=== PATIENT | male | born 1950 | race Caucasian/White ===

== ENCOUNTER 2017-10-20 10:02 | Emergency (ER) | payer BC, MEDICARE ==
[2017-10-20 12:02] VITALS: BP 126/67
--- NOTE | 2017-10-20 12:11 | UC ---
UC General HPI - HPI Summary HPI Summary: pt is c/o a cough with congestion and sore throat. this is day 4. no fever, cp or sob. pt is an diabetic but BS stable at 130's. - History of Current Complaint Chief Complaint: UCRespiratory Stated Complaint: COUGH, SORE THROAT Time Seen by Provider: 10/20/17 11:55 Hx Obtained From: Patient Onset/Duration: Gradual Onset Timing: Constant Onset Severity: Mild Current Severity: Mild Pain Intensity: 0 Aggravating: nothing Alleviating: nothing Associated Signs & Symptoms: Positive: Cough. Negative: Chest Pain, Fever, Headache, SOB, Wheezing - Allergy/Home Medications Allergies/Adverse Reactions: Allergies Allergy/AdvReac Type Severity Reaction Status Date / Time No Known Allergies Allergy Verified 10/20/17 11:53 Home Medications: Home Medications Atorvastatin* [Lipitor 40 MG*] 40 mg DAILY 10/20/17 [History Confirmed 10/20/17] Levothyroxine TAB* [Synthroid TAB*] 50 mcg DAILY 10/20/17 [History Confirmed 12/04] metFORMIN* [Glucophage 500 MG TAB *] 500 mg PO BID 10/20/17 [History Confirmed 10/20/17] PMH/Surg Hx/FS Hx/Imm Hx Endocrine History: Diabetes, Thyroid Disease, Dyslipidemia Cardiovascular History: Hypertension - Surgical History Surgical History: Yes Surgery Procedure, Year, and Place: lipoma removed - Social History Occupation: Employed Full-time Lives: With Family Alcohol Use: None Substance Use Type: None Smoking Status (MU): Former Smoker Type: Cigarettes Have You Smoked in the Last Year: No Household Exposure Type: Cigarettes - Immunization History Vaccination Up to Date: Yes Review of Systems Constitutional: Negative Skin: Negative Eyes: Negative ENT: Sore Throat Respiratory: Cough Cardiovascular: Negative Gastrointestinal: Negative Genitourinary: Negative Motor: Negative Neurovascular: Negative Musculoskeletal: Negative Neurological: Negative Psychological: Negative Is Patient Immunocompromised?: No All Other Systems Reviewed And Are Negative: Yes Physical Exam Triage Information Reviewed: Yes Appearance: Well-Appearing Vital Signs: Initial Vital Signs Temp 98.9 F 10/20/17 11:56 Pulse 86 10/20/17 11:56 Resp 16 10/20/17 11:56 BP 126/67 10/20/17 11:56 Pulse Ox 99 10/20/17 11:56 Vital Signs Reviewed: Yes Eyes: Positive: Conjunctiva Clear ENT: Positive: Pharyngeal erythema, TMs normal, Uvula midline. Negative: Nasal congestion, Nasal drainage, Tonsillar swelling, Tonsillar exudate, Trismus, Muffled voice, Hoarse voice Neck: Positive: Supple, Nontender, No Lymphadenopathy Respiratory: Positive: Lungs clear, Normal breath sounds Cardiovascular: Positive: RRR, No Murmur, Pulses Normal Abdomen Description: Positive: Nontender, No Organomegaly, Soft, Hernia @ - umbilical, non tender and reducible. Bowel Sounds: Positive: Present Musculoskeletal: Positive: No Edema Neurological: Positive: Alert Psychological: Positive: Age Appropriate Behavior Skin Exam: Normal Diagnostics - Laboratory Diagnostic Studies Completed/Ordered: rapid strep negative. nothing on hx/pe to support antibiotics. tx supportive Course/Dx - Course Course Of Treatment: exam c/w pharyngitis and uri with supportive tx, no antibiotics indicated - Differential Dx - Multi-Symptom Provider Diagnoses: pharyngitis, bronchitis Discharge - Discharge Plan Condition: Stable Disposition: HOME Patient Education Materials: Pharyngitis (ED), Acute Bronchitis (ED) Referrals: Marlena Mosley MD [Primary Care Provider] - 7 Days
== END 2017-10-20 12:34 | disposition home or self-care (01) ==
LOC: UCCORT 10:02
DX: J02.9 Acute pharyngitis, unspecified (principal); J40 Bronchitis, not specified as acute or chronic; E11.9 Type 2 diabetes mellitus without complications; Z79.84 Long term (current) use of oral hypoglycemic drugs; E07.9 Disorder of thyroid, unspecified; E78.5 Hyperlipidemia, unspecified; Z87.891 Personal history of nicotine dependence
CPT/HCPCS: 87651; 99201; G0463